=== PATIENT | male | born 1965 | race Caucasian/White ===

== ENCOUNTER 2016-07-03 08:21 | Inpatient (IN) | payer OTHER ==
[2016-07-03] VITALS (12 sets, daily range): BP systolic 124–143; BP diastolic 59–87; PULSE 75–102; RESP 10–17; O2SAT 90–97
[~2016-07-03] VITALS: Ht 182.9 cm; Wt 130.0 kg
[2016-07-03] MEDS: cefTRIAXone 2,000 mg/D5W 50 mL IV Minibag Plus IV SCH ×4 (06:00→11:56)
[2016-07-03] MEDS: Vancomycin Inj 2,000 MG in 0.9% Sodium Chloride 500 ML IV SCH ×2 (06:00→11:14)
[~2016-07-03 08:21] MED LIST: ALLO300T2 PO; AZU500 PO; BETA30LO2 TP; Bupivacaine Liposome 1.3% 20 mL Inj INFILTRATE SCH; CLOB15CR3 TOP; COLC0.6C3 PO; FOLI1TAB18 PO; INDO50CA PO; KEN25CR EXT; LISI-567 PO; Lactated Ringer's 1,000 ML IV ONE; OXYC5CAP4 PO; SECU150S2 SQ; [UNRECOGNIZED DRUG - CODE] SQ
[2016-07-03] MEDS ORDERED: Lactated Ringer's 1,000 ML IV ONE (10:30)
[2016-07-03] MEDS ORDERED: Bupivacaine Liposome 1.3% 20 mL Inj INFILTRATE ONE (10:49)
[2016-07-03] MEDS ORDERED: Gentamicin 40 mg/mL 2 mL Inj IRRIGATION ONE (10:49)
[2016-07-03] MEDS ORDERED: Bupivacaine-MPF 0.25%/EPI 30 mL Inj INFILTRATE ONE (10:49)
[2016-07-03] MEDS ORDERED: Lactated Ringer's 1,000 ML IV SCH (11:12)
[2016-07-03] MEDS ORDERED: Lactated Ringer's 500 ML IV PRN (11:12)
--- NOTE | 2016-07-03 11:12 | PCM.HPANE ---
Patient Data Surgeon Admitting Provider: Attending Provider:Pabilto Alex MD Primary Care Physician:Kim Howard Other Provider:Sav Mccrary Anesthesia Reason for Visit Right Knee Arthritis RIGHT KNEE ARTHRITIS Ht/WT & BMI Height (Feet): 6 Height (Inches): 0 Weight (Kilograms): 131.54 Body Mass Index 39.00 Allergies Coded Allergies: Penicillins (Verified Allergy, Severe, SOMMER PEG SYNDROME, 06/14/16) amoxicillin (Verified Allergy, Severe, SOMMER PEG SYNDROME, 06/14/16) cephalexin (Unverified Allergy, Unknown, UNKNOWN, 06/14/16) clavulanic acid (Verified Allergy, Unknown, UNKNOWN, 06/14/16) linezolid (Verified Allergy, Unknown, 06/28/16) metoclopramide (Verified Adverse Reaction, Severe, "OUT OF BODY" EXPERIENCE, 06/14/16) Past Anesthesia History Anesthesia History: Positive for:: Anesthesia Reactions (allergy to reglan), Denies:: Abnormal Airway, Difficult Intubation, Fam Anesthesia Reaction, Malignant Hyperthermia Diabetes History Hx Diabetes?: No MRSA MRSA: No (MSSA infection hx- sees infectious disease) Medications Hypertension Medication: Yes Home Meds Incl Beta Patria: No Reported Medications Indomethacin 50 Mg Octfkbp34 Mg PO 3-4xdaily Ref 0 06/28/16 Triamcinolone Acet (Triamcinolone Acetonide Cream)1 Applic/0.25 Gm Cr1 Applic EXT BID PRN skin irritation #60 GM Ref 0 06/28/16 Sulfasalazine 500 Mg Tablet1,000 Mg PO BID 30 Days Ref 0 06/28/16 Methotrexate/Pf (Rasuvo 10 mg/0.2 ml Autoinj)10 Mg/0.2 Ml Auto.injct10 Mg SQ WEEKLY 06/28/16 Lisinopril 20 Mg Gujndh54 Mg PO DAILY 30 Days Ref 0 06/28/16 Folic Acid 1 Mg Tablet1 Mg PO DAILY 30 Days 06/28/16 Secukinumab (Cosentyx (2 Syringes))150 Mg/Ml Eqwrxxj521 Mg SQ p4lznjg 06/28/16 Colchicine 0.6 Mg Capsule0.6 Mg PO DAILY PRN gout flares 06/28/16 Clobetasol Propionate/Emoll (Clobetasol Emollient 0.05% Crm)15 Gm Cream..g.1 Appl TOP BID PRN skin irritation #1 TUBE 06/28/16 Betamethasone/Propylene Glyc (Betamethasone Dp Aug 0.05% Lot)30 Ml Ewpras73 Ml TP PRN skin irritation 06/28/16 Allopurinol 300 Mg Tsemzz785 Mg PO DAILY Ref 0 06/28/16 oxyCODONE 5 Mg Capsule5 Mg PO 3-4xdaily PRN For Pain Ref 0 06/28/16 Discontinued Reported Medications Sulfasalazine 500 Mg Mzmzlf571 Mg PO QID 30 Days Ref 0 06/14/16 Methotrexate/Pf (Rasuvo 10 mg/0.2 ml Autoinj)10 Mg/0.2 Ml Auto.injct10 Mg SQ WEEKLY 06/14/16 Secukinumab (Cosentyx (2 Syringes))150 Mg/Ml Izhxxjk607 Mg SQ 06/14/16 Allopurinol 300 Mg Vpsaaw002 Mg PO DAILY Ref 0 01/06/15 oxyCODONE 5 Mg Capsule5-10 Mg PO Q4H PRN For Pain Ref 0 09/22/14 History History of ENT Problems?: No HEENT History: Positive for:: Sinus Problem (sinus drip at night occasionally) Denies:: Abnormal Airway Cataracts Difficult Intubation Glaucoma Hearing Problem TMJ Denture Type: Partial- Upper Teeth Condition: Missing Teeth Hx of Heart Problems?: Yes Cardiovascular History: Positive for:: Hypertension Denies:: Congestive Heart Failure Edema Heart Murmur Irregular Heartbeat Pacemaker Thrombophlebitis Hx of Respiratory Problem?: No Respiratory History: Positive for:: Dyspnea (with exertion) Denies:: Asthma COPD Emphysema Hemoptysis Oxygen Administration Pneumonia (URI 2 years ago - none since) Tuberculosis Use of C-PAP Machine Use of Inhalers / NEBS Hx Neurologic Problems?: No Neurological History: Denies:: CVA Dementia Dizziness Headaches Multiple Sclerosis Parkinson's Disease Seizures TIA Hx of GI Problems?: Yes Hx of Problems?: No Genitourinary History: Denies:: Kidney Stones Urinary Tract Infection Male Hx: Denies:: Prostate Problems Scrotal Mass Testicular Surgery Skin History: Positive for:: History Skin Disorders? (psoriasis) Denies:: Pressure Ulcers Hx Musculoskeletal Problems?: Yes Musculoskeletal History: Positive for:: Joint Replacement (L hip replacement) Musculoskeletal Trauma (post op wound infection right knee current problem) Osteoarthritis (psoriatic arthritis ) Denies:: Back Injury Hx of Psycho/Social Problems?: No Psycho Social History: Denies:: Anxiety (situational with knee/ infections) Hx Depression Hx Surgeries?: No (tonsillectomy, foot surgery, left hip replacement, rt knee arthrosopy) Hx Any Other Health Problems?: Yes Other History: Positive for:: Hospitalization (surgery) Denies:: Cancer Endocrine Disease Thyroid Disease History Blood Transfusions: Positive for:: Accept Blood Products? Denies:: Blood Transfuse Reaction Blood Transfusions Hx Diabetes: No Hx Alcohol Use: YesAlcoholic Drinks Per Day: 6 beer weeklyHx Substance Use: No Smoking Status: Never Smoker Have You Smoked inLast 12 mo: No Stop/Bang S-Snoring: Do You Snore Loudly: No T-Tired: feel tired, fatigued: No O-Obsered: Observed not breath: No P-Blood Pressure: treated: Yes B- Body Mass Index > 35 kg/m2: Yes A- Age over 50: Yes N- Neck Large Circumference: No G- Gender Male: Yes KEVIN Total Score: 4 Risk Assessment Category Category 1A: Patient has history of documented sleep apnea, and HAS NOT received any narcotic, sedative or anesthesia administration during this stay. Category 1B: Patient has history of documented sleep apnea, and HAS received any narcotic , sedative or anesthesia administration during this stay Category 2: Patient has SUSPECTED Obstructive Sleep Apnea, and HAS received any narcotic , sedative or anesthesia administration during this stay. Category 3: Patient has SUSPECTED Obstructive Sleep Apnea and HAS NOT received narcotic, sedative or anesthesia administration during this stay. Category 4: Outpatient in Procedural Areas with known sleep apnea or who screen positive for High Risk via the STOP/BANG questionnaire. Exam Exam General Appearance: Alert, Oriented X3, Cooperative, No Acute Distress HEENT/AIRWAY: MP 2, Neck Movement (FROM), Mouth Opening (3 FBMO) Lungs: Clear to Auscultation, Normal Air Movement Heart: Exam Unremarkable, Regular Rate/Rhythm, No Murmurs/Rubs/Gallops Plan Impression Patient chart reviewed, patient interviewed and anesthestic plan with risks, benefits, and alternatives discussed, and informed consent obtained. NPO per Anesth. Guidelines: Yes ASA Physical Status: ASA2 Mod Systemic Disease Anesthetic Plan: GA, Regional Block (Right femoral nerve block for posotperative pain control), SAB (Will attempt SAB first, if unsuccessful will perform GETA) Bene/Risks/Altern/Consents: Yes HP Complete Prior to Induction: Yes Akhil Gutierrez MD July 03, 2016 08:31
[2016-07-03] MEDS ORDERED: Phenylephrine 10,000 mCg/mL Inj IVPUSH PRN (11:15)
[2016-07-03] MEDS ORDERED: Labetalol 5 mg/mL 4 mL Inj IV PRN (11:15)
[2016-07-03] MEDS ORDERED: HYDROmorphone 1 mg/mL Inj IVPUSH PRN (11:15)
[2016-07-03] MEDS ORDERED: Ondansetron 2 mg/mL 2 mL Inj IVPUSH PRN (11:15)
[2016-07-03] MEDS ORDERED: fentaNYL-PF 50 mCg/mL 2 mL Inj IVPUSH PRN (11:15)
[2016-07-03] MEDS ORDERED: Atropine 0.4 mg/mL Inj IVPUSH PRN (11:15)
[2016-07-03] MEDS ORDERED: EPHEDrine Sulfate 50 mg/mL Inj IVPUSH PRN (11:15)
[2016-07-03] MEDS ORDERED: fentaNYL-PF 50 mCg/mL 2 mL Inj ONE (13:33)
[2016-07-03] MEDS ORDERED: Propofol 10,000 mCg/mL 20 mL Inj ONE (13:33)
[2016-07-03] MEDS ORDERED: HYDROmorphone 2 mg/mL Inj ONE (13:33)
[2016-07-03] MEDS ORDERED: Phenylephrine/NS 100 mCg/mL 10 mL Syringe IVPUSH ONE (13:33)
[2016-07-03] MEDS ORDERED: Rocuronium 10 mg/mL 5 mL Inj ONE (13:33)
[2016-07-03] MEDS ORDERED: Dexamethasone 4 mg/mL Inj ONE (13:33)
[2016-07-03] MEDS ORDERED: Ondansetron 2 mg/mL 2 mL Inj ONE (13:33)
--- NOTE | 2016-07-03 13:39 | DRSVH ---
PROCEDURE: X-RAY RIGHT KNEE, ONE OR TWO VIEWS ([id number]) INDICATIONS: CHECK ALIGNMENT TECHNIQUE: 2 view(s) of the knee acquired. COMPARISON: None. FINDINGS: Bones: Patient is status post knee joint arthroplasty. Hardware components are in expected position s. Visualized bony structures are intact. Soft tissues: Overlying postoperative changes are noted. IMPRESSION: Post-operative knee arthroplasty. Dictated by: Alana Edge M.D. on 07/03/2016 at 13:36 Approved by: Alana Edge M.D. on 07/03/2016 at 13:37
[2016-07-03] MEDS ORDERED: Magnesium Hydroxide 10 mL Oral Concentration PO PRN (14:20)
[2016-07-03] MEDS ORDERED: Alum-Mag Hydrox-Simeth 30 mL Suspension PO PRN (14:20)
[2016-07-03] MEDS ORDERED: Sodium Biphos-Phos 133 mL Enema RECTAL PRN (14:20)
[2016-07-03] MEDS ORDERED: MetoCLOpramide 5 mg/mL 2 mL Inj IV PRN (14:20)
[2016-07-03] MEDS ORDERED: diphenhydrAMINE 25 mg Capsule PO PRN (14:20)
[2016-07-03] MEDS ORDERED: Ondansetron 2 mg/mL 2 mL Inj IV PRN (14:20)
[2016-07-03] MEDS ORDERED: HYDROcodone-APAP 5-325 mg Tablet PO PRN (14:20)
[2016-07-03] MEDS ORDERED: Ondansetron 8 mg ODT Tablet PO PRN (14:20)
[2016-07-03] MEDS ORDERED: hydrOXYzine Pamoate 25 mg Capsule PO PRN (14:20)
--- NOTE | 2016-07-03 14:27 | PCM.ANEP1 ---
Post Anesthesia Phase 1 PACU Phase 1 Assessment Vital Signs Vital Signs Date Time Temp Pulse Resp B/P Pulse Ox O2 Delivery O2 Flow Rate FiO2 07/03/16 13:50 37.0 90 17 131/78 Nasal Cannula 3.00 07/03/16 13:35 91 13 131/59 94 Nasal Cannula 3 07/03/16 13:25 91 15 124/75 92 Room Air 07/03/16 13:15 37.8 92 11 143/87 93 Nasal Cannula 3 07/03/16 13:10 94 12 131/75 96 Nasal Cannula 3 07/03/16 13:05 90 10 132/68 90 Nasal Cannula 2 07/03/16 13:00 97 16 139/65 93 Nasal Cannula 2 07/03/16 12:55 98 14 131/77 95 Nasal Cannula 2 07/03/16 12:50 37.3 93 15 138/82 97 Simple Mask 8 07/03/16 09:09 36.5 75 17 130/67 97 Anesthetic Administered: GA Level of Alertness: Awake, talking RITTER's with Equal Strength: Yes (except for distribution of FNB) Pain: Yes (RN notified) Pain Scale Score: 4 Nausea or Vomiting: No Cardiovascular Function and Hy: Yes Oxygen Delivery: Nasal Cannula Lungs: Clear to Auscultation, Normal Air Movement Dermatome Level: Full Sensation (except for distribution of femoral nerve block ) Complications: No Follow up Care: No Akhil Gutierrez MD July 03, 2016 14:27
[2016-07-03] MEDS ORDERED: CLOBETASOL 0.05% TOPICAL PRN (14:40)
[2016-07-03] MEDS ORDERED: BETAMETHASONE DIPROPIONATE 0.05% TOPICAL PRN (14:40)
[2016-07-03] MEDS: Lactated Ringer's 1,000 ML IV SCH (14:46)
[2016-07-03] MEDS: oxyCODONE-Acetamin 5-325 mg Tablet PO PRN ×2 (15:04→22:40)
--- NOTE | 2016-07-03 16:05 | NUR ---
Evaluation completed. Please go to "Notes" then click on "Assessments and Notes" (bottom left corner of screen). Then select appropriate discipline tab on top of screen.
[2016-07-03] MEDS ORDERED: Indomethacin 25 mg Capsule PO SCH (17:30)
--- NOTE | 2016-07-03 18:52 | NUR ---
Hemovac Unclamped, Urination, CPAP Patient arrived to floor from PACU, CMS intact, has sensation and movement to surgical extremity, pedal pulses present, brisk capillary refill. Hemovac unclamped per orders. Patient able to urinate without difficulty. Patient reports pain well controlled with oral pain meds, denies nausea or other difficulty. Patient refuses CPAP despite education, on pulse oximeter, sats in mid to upper 90s on room air. Care is ongoing.
[2016-07-03] MEDS: Sulfasalzine 500 mg Tablet PO SCH (20:47)
--- NOTE | 2016-07-03 22:37 | OP ---
[address] [address] OPERATIVE REPORT PATIENT: PERICO HAMILTON : 1965 MR#: [id number] ADMIT: 07/03/2016 JOB ID: [id number] DATE OF SURGERY: 07/03/2016 SURGEON: Pablito Alex MD PREOPERATIVE DIAGNOSIS(ES): Severe arthritis, right knee. History of prior septic arthritis. POSTOPERATIVE DIAGNOSIS(ES): Severe arthritis, right knee. History of prior septic arthritis. PROCEDURE: Total knee replacement with culture, bacterial PCR, and intraoperative frozen section. FAILURE ANALYSIS ENGINEER: Jessica Melchor PA-C. Fire Alarm Mechanic required due to the major complexity of the operation. COMPLICATIONS: None. INDICATIONS: This gentleman has had severe osteoarthritis. He went through extensive treatment for an intra-articular infection three years ago following an arthroscopic procedure. All evidence is that he is infection-free at this point in time. Infectious disease consultation has been obtained and will facilitate postoperative management. Due to the significant risk of increased infection, a minimal bone resection prosthetic choice was made for the tibial component. Intraoperative cultures, PCR and frozen section were obtained and he will be placed on postoperative antibiotics as if this was a primary exchange. PROCEDURE IN DETAIL: The patient was prepped and draped in the usual sterile fashion. An anteromedial approach was made to the knee. Minimal intra-articular fluid was noted, but a small effusion was present and this used material was sent for bacterial PCR. Following this, the patella was subluxed laterally, cut transversely, sized to a 38 and a patellar protection plate was utilized. Tissue specimens were obtained for culture at this point. A drill hole was placed in the distal femur and a distal femoral cut was made, cutting into one of the bony cysts present. Cystic material was sent for frozen section as well as additional sampling for frozen section. Frozen section returned a diagnosis of no bacteria, no evidence of infection. Therefore, decision was made to proceed with implantation. The femur was sized using the rotational sizing device to a #7 chamfer block which was fixed in appropriate position of rotation and drill holes and chamfer cuts were made. The tibia was cut with the extramedullary tool and a four pegged tibia was chosen from the [employer] set for minimal bone resection to facilitate the procedure should a revision be required in the future. This was sized to a 7 component and fixed in appropriate position of rotation and trial reduction was performed and a 12 mm polyethylene was chosen. Excellent tracking and soft tissue alignment was achieved with this polyethylene. A +2 distal femoral cut had been made to facilitate full extension, with the patient having had a prior flexion contracture. Excellent on the table range of motion was obtained with this construct. Appropriate position of rotation in the tibial provisional was achieved and drill holes were made. Copious lavage with pressurized sterile irrigant was utilized. The knee was then lavaged and soaked in dilute Betadine solution for a 3 minute period following which the Betadine was lavaged from the knee. Pressurized lavage was followed by pressurized cementation. Excess cement was removed during the curing process and the final construct was assembled. It was subsequently placed over a deep Hemovac drain. The deep tissues were closed with #2 Quill deep followed by a 2-0 Vicryl, 3-0, and a 4-0 intracuticular suture. The patient tolerated the procedure well. There were no complications.
[2016-07-03] MEDS ORDERED: Vancomycin Inj 2,000 MG in 0.9% Sodium Chloride 500 ML IV ONE (23:00)
[2016-07-04 04:45] VITALS: BP 124/72; PULSE 80; RESP 16; O2SAT 92
--- NOTE | 2016-07-04 05:17 | NUR ---
Pain Patient's pain has been well managed this shift. 1 Percocet in addition to scheduled Toradol. Patient voiding in urinal. Hemovac put out 360 in the first [address] Malik contacted [facility] Marino. Ordered to clamp hemavac for 2hrs and then unclamp. Patients vitals stable. Hemovac output slowed after unclamped. Patient A&Ox3.
[2016-07-04 05:39] LABS: BASOPHILS % (AUTO) 0.1 % (0-3); EOSINOPHILS % (AUTO) 0 % (0-5); MONOCYTES % (AUTO) 8.9 % (4-12); Mean Corpuscular Hemoglobin 31.3 pg (27.0-35.0); Mean Corpuscular Volume 95.3 fL (81-100); NEUTROPHILS % (AUTO) 80.9 % (40-74); Platelet Count 124 bil/L (150-400)
[2016-07-04] MEDS ORDERED: 0.9% Sodium Chloride 250 ML ONE (08:12)
[2016-07-04 08:15] VITALS: BP 138/85; PULSE 86; RESP 15; O2SAT 97
[2016-07-04] MEDS: oxyCODONE-Acetamin 5-325 mg Tablet PO PRN ×2 (08:18→22:32)
[2016-07-04] MEDS: Sulfasalzine 500 mg Tablet PO SCH ×2 (08:20→21:04)
[2016-07-04] MEDS: Indomethacin 25 mg Capsule PO SCH ×3 (08:22→17:55)
[2016-07-04] MEDS: cefTRIAXone 2,000 mg/D5W 50 mL IV Minibag Plus IV SCH ×2 (08:29)
--- NOTE | 2016-07-04 09:48 | PCM.PNORTH ---
Subjective Date of Service: July 04, 2016 Visit Information: Reason for Visit Right Knee Arthritis Surgery/Surgery Date R TKA 07/03/16 Post-Op Day # 1 Date of Admission: July 03, 2016 at 13:32 Hospital Day # Subjective Patient states his pain is well controlled. He states he has had some pain along the outside of his knee. He also states he is regaining feeling in the back of his knee. He has no complaints at this time. Postop General: No Complaints, No Shortness of Breath, No Chest Pain Pain Management: PO Objective Exam Objective Sitting up in bed working with PT Vital Signs and I/O Vital Sign - Last Date Time Temp Pulse Resp B/P Pulse Ox O2 Delivery O2 Flow Rate FiO2 07/04/16 08:15 36.7 86 15 138/85 97 Room Air 07/03/16 19:15 3.00 Intake and Output 07/03/16 07/03/16 07/04/16 Cumulative From/Thru 15:00 23:00 07:00 06/28/16 14:32 - 07/04/16 06:30 Intake Total 1760 ml 200 ml 2517 ml 4477 ml Output Total 50 ml 600 ml 780 ml 1430 ml Balance 1710 ml -400 ml 1737 ml 3047 ml Intake Oral 200 ml 1200 ml 1400 ml IV Total 1760 ml 1317 ml 3077 ml Output Urine Total 450 ml 500 ml 950 ml Drainage Total 150 ml 280 ml 430 ml Estimated Blood Loss 50 ml 50 ml Lab & Micro Results Laboratory Tests Test 07/04/16 05:12 White Blood Count 10.5th/mm3 (3.8-10.1) Red Blood Count 3.42mil/mm3 (4.40-5.80) Hemoglobin 10.7g/dL (13.8-17.2) Hematocrit 32.6% (41.0-50.0) Mean Corpuscular Volume 95.3fL (81-100) Mean Corpuscular Hemoglobin 31.3pg (27.0-35.0) Mean Corpuscular Hemoglobin Concent 32.8% (32.0-37.0) Red Cell Distribution Width 13.4% (12.3-15.4) Platelet Count 124bil/L (150-400) Neutrophils (%) (Auto) 80.9% (40-74) Lymphocytes (%) (Auto) 9.7% (14-46) Monocytes (%) (Auto) 8.9% (4-12) Eosinophils (%) (Auto) 0% (0-5) Basophils (%) (Auto) 0.1% (0-3) Microbiology 07/03/16 Bacteria Detection (PCR), Received Pending Result Diagram: 07/04/16 0512 General Appearance: Alert, Oriented X3, Cooperative, No Acute Distress Extremities: Distal Pulses Palpable, No Compartment Syndrom Noted, Thigh & Calf Soft/Nontender Postop Sensory Motor: Distal Motor Intact, Movement in Toes, Distal Sensation Intact, NVI Distally SURGICAL WOUND : Wound Location/Description Perioperative dressing c/d/i Drain Location Body Site: Knee Incision General Appearance: No Direct Observation Dressing & Drainage Status: Intact Wound Drainage Type: Hemovac Activity: Ambulate with PT (WBAT c FWW) Assessment & Plan Impression POD#1 right TKA Problems: Plan Weightbearing: Weightbearing as tolerated with a front wheeled walker DVT prophylaxis: Aspirin 81mg BID x6 weeks Physical therapy for transfers, progressive ambulation, strengthening Wound care: Perioperative dressing will be changed to an island dressing tomorrow. Analgesia: Continue oral pain medications. I have also started patient on IV acetaminophen q6 x4 doses for a total of 24 hours of coverage as he has a history of chronic narcotic use. Discharge plan: Discharge home in 1-2 days. Start outpatient physical therapy next week. Follow-up plan: In 2 weeks at [facility]3] with AMBER for wound check and at [address] Alex with x-rays Jessica Melchor PA-C July 04, 2016 09:48
[2016-07-04] MEDS: Acetaminophen IV 1,000 mg IV SCH ×2 (12:05→17:55)
[2016-07-04] MEDS: Lactated Ringer's 1,000 ML IV SCH (12:36)
--- NOTE | 2016-07-04 15:17 | NUR ---
Social Work: Screening D: EMR reviewed. Pt is a 51 y/o male admitted for right knee arthritis per H&P. SW met with pt at bedside to conduct screening. Pt was alert and oriented x3. Pt's insurance is [employer] and PCP is Kim Howard MD. Pt has no LTC or VA insurance. Pt has no history of HH or a SNF. Pt confirmed he has completed DPOA/advanced directive and will attempt to bring a copy to the hospital. Pt live at home with in [place]. Pt's primary contact is [place] [phone]. Pt lives in a split level home with 0 external steps and 15 internal steps. Pt ambulates independently at baseline and is independent of ADLs. Pt drives. Pt has crutches and a cane for rehabilitation. Pt has FWW prescribed and will use for rehab after discharge. 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 PT currently recommends outpatient PT and a FWW. Pt is currently scheduled for outpatient PT. Pt is concerned about being homebound for the first week after discharge and is considering HH. Pt will talk to PT about HH and SW will follow-up with pt to R/O HH. SW will continue to follow. A: Pt who ambulates independently at baseline. Pt who would benefit from outpatient PT for rehab. P: Pt to transport home via POV with and go to outpatient PT as scheduled. Pt would like to discuss possible HH with PT. SW to follow-up tomorrow after PT has seen pt to R/O HH. PAULA Grover.
--- NOTE | 2016-07-04 15:56 | NUR ---
Social Work: Initial Assessment D: EMR reviewed. Pt is a 68 y/o male admitted for left septic elbow, UTI per H&P. SW met with pt at bedside to conduct initial assessment. Pt was alert and oriented x3. Pt's insurance is [employer]. Pt's PCP is Jc Mccann MD. Pt has no LTC or VA insurance. Pt has no history of SNF or HH. Pt ambulates independently at baseline but has a cane for prior rehab use. Pt is independent with ADLs. Pt drives. Pt lives in a single-level home (2 external steps, 0 internal) in [place] with . Pt has completed DPOA/advanced directive ppw - SW encourage pt to bring copy to hospital. Pt's Kay will provide transport via POV at time of discharge. A: Pt who is independent at baseline P: Pt's will provide transportation home via POV. No anticipated discharge needs at this time. SW will continue to follow. PAULA Grover Addendum: 07/04/16 at 1603 by RICARDO DIAL Amended: Links added. Addendum: 07/05/16 at 0850 by RICARDO DIAL DISREGARD INITIAL ASSESSMENT ABOVE. SW ENTERED ASSESSMENT FOR WRONG PT. ASSESSMENT NOT CORRECT AND DOES NOT REFLECT ASSESSMENT OF PT. PAULA Grover
[2016-07-04] MEDS ORDERED: Sodium Chloride LOK Flush 10 mL Syringe IVFLUSH PRN ×2 (16:55)
[2016-07-04 17:08] VITALS: BP 138/81; PULSE 74; RESP 16; O2SAT 92
--- NOTE | 2016-07-04 18:22 | NUR ---
Hemovac Removal Hemovac DC'd this shift after collection chamber because dislodged from tubing. Patient tolerated removal well. Pressure applied to removal site, dressing applied. Care is ongoing.
--- NOTE | 2016-07-04 18:53 | CONS ---
[address] [address] CONSULTATION REPORT PATIENT: PERICO HAMILTON : 1965 MR#: [id number] ADMIT: 07/03/2016 JOB ID: [id number] DATE OF SERVICE: 07/04/[address] Alex for this timely consult. REASON FOR CONSULTATION: Right-sided total knee implant performed yesterday in a patient with history of prolonged and difficult septic right knee. HISTORY OF PRESENT ILLNESS: The patient is a 51-year-old gentleman with underlying gout, psoriatic arthritis and right septic knee is well-known to me from a series of hospitalizations and outpatient encounters that started in late 2014 and extended all the way to the present. Basically back in the summer 2014, the patient had an arthroscopic surgery done on his right knee because of some synovial cyst and other issues. Following this, he developed a raging MSSA septic right knee which was also a gouty knee and surgical intervention showed that it was both gout and MSSA. Initial treatment was with daptomycin which was terminated after three weeks because of hyperkalemia and switched to a combination of Minocin and rifampin orally. This eventually failed by clinical criteria though was not completely clear if it was a microbiologic failure. The patient went back to the OR in the fall for his 3rd procedure which once again re-evaluated his joint. At that point, a great deal of fibrosis was encountered and basically synovectomy was performed. The cultures from that did not yielded any MSSA but there was one colony isolated of a P. acnes. The patient was then treated with a very prolonged course of IV vancomycin with near normalization of his CRP and eventually transitioned to oral antibiotics which initially included linezolid and rifampin and, later, minocycline alone. By the summer, he had stopped all antibiotics. The patient has continued to have a great deal of difficulty with respect to his severely damaged right knee, and the plan was to wait a number of months to make sure his CRPs were relatively stable at low levels and watch for recrudescent infection before knee replacement. Numerous aspirates of his knee have been conducted over the last year including some done for PCR and has had positive culture PCR results so was deemed safe to go ahead with a total knee replacement on yesterday, July 03. This was done without complication and I have discussed the surgery in detail with Dr. Alex who did not feel there was any ongoing infection. Nonetheless, many cultures were sent and PCR studies done. A frozen section done during surgery did not show evidence of infection. Since surgery, the patient reports he has been feeling okay. He had some sweats last night but no fevers or chills. He has had no pulmonary or GI symptoms. He notes his nerve block is still in place. He still has not experienced too much in the way of pain secondary to his right knee replacement and he has already been up walking on it from today. PAST MEDICAL HISTORY: 1. Septic right knee summer 2014 with MSSA and prolonged course resulting in severe damage to the right knee. 2. Severe psoriasis with psoriatic arthritis. 3. Gout. 4. 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 5. History of blistering rash due to cephalexin. 6. Avascular necrosis, left hip. 7. Status post left hip replacement about 2011. SOCIAL HISTORY: The patient lives with his family locally. He does not smoke and uses no illicit drugs. He does drink alcohol socially. FAMILY HISTORY: Negative for any history of tuberculosis in first or second-degree relatives. REVIEW OF SYSTEMS: The patient has had some night sweats but no fevers or chills and those night sweats only occurred after surgery. He has had a minimal headache today which is also a postop discovery. No change in vision. He has a little bit of sore throat since surgery he attributes to his intubation, but he did have a little bit of sore throat before and states it was a virus apparently moving through his family. No stiff neck or swollen lymph nodes. No significant cough, shortness of breath, chest pain, nausea, vomiting, diarrhea, or dysuria. No pain in any joints at this point except his back which is chronic and mild and his right knee which was just replaced.Remainder of ROS is negative PHYSICAL EXAMINATION: Reveals an afebrile gentleman. He has been afebrile since admission. Temp 36.7, pulse 86, respiratory rate 15, blood pressure 138/85, saturating 97% on room air. He is awake, alert. Head without any evident trauma. Eyes without conjunctivitis. Oral cavity without thrush or pharyngitis. No hairy leukoplakia seen on the tongue. Teeth are in good repair. Neck is supple without adenopathy. Lungs are clear. Cardiac tones: Regular rate and rhythm without murmurs, rubs, or gallops. The abdomen is soft and nontender. No organomegaly. He does not have a Joy. No suprapubic tenderness. No inguinal adenopathy noted. Left lower extremity is benign. Right lower extremity starting at the knee and below was wrapped in a large postop compressive dressing which I did not remove. The patient can move his both his feet without difficulty though and seems to have good sensation of his foot even as part of his leg is still numb from his block. Motor strength on the upper extremities is excellent and, as mentioned, the neuro exam is normal. LABORATORIES: Include white count 10,500, today on his 1st postop day, 81% segs, creatinine 0.95. LFTs are normal. C-reactive protein has not been checked during this admission but will start checking him on an outpatient basis. Micro studies include the pending PCR studies from surgery, fungal cultures are also pending. The routine cultures are negative at 24 hours and Gram stain and frozen sections are also negative. X-ray of the knee shows hardware in expected position. IMPRESSION: This patient seems to have tolerated this knee replacement quite well. I am happy that Dr. Alex did not find any evidence of infection and the frozen sections were benign. At this point, we await the final culture and PCR results. Because of the tremendous infectious problems that have been present in the right knee, we plan to treat this as a one stage replacement into an infected or potentially infected knee and give six weeks of IV antibiotics followed by about six months of oral antibiotics directed at either any new pathogens we find this time more or the pathogen we had last time which was MSSA. RECOMMENDATIONS: 1. I have ordered a PICC line. 2. I have placed the orders for [facility] to evaluate the patient and treat him with ceftriaxone through August 12 at a dose of 2 g once a day. 3. The patient should be sent home on rifampin 450 mg p.o. b.i.d. through August 12. 4. I will be seeing this patient in my clinic on July 12. 5. Assuming there are no problems, I will probably not see the patient here tomorrow as he will be leaving sometime tomorrow morning, but I can be reached at any time regarding any issues with the disposition of this patient whom I know very well. MTDD
[2016-07-04 20:00] VITALS: BP 149/82; PULSE 76; RESP 17; O2SAT 97
[2016-07-05] MEDS: Acetaminophen IV 1,000 mg IV SCH ×2 (00:01→04:00)
--- NOTE | 2016-07-05 03:50 | NUR ---
Ambulation Patient up ambulating independent to bathroom w/FWW, stable on feet. Patient has had two BM's this shift. the second BM was very loose. Stool softeners no longer necessary. Patient's pain has been managed by one Percocet and IV Tylenol. Patient A&Ox3. Vitals stable.
[2016-07-05] MEDS: Lactated Ringer's 1,000 ML IV SCH (05:51)
[2016-07-05 06:02] VITALS: BP 111/67; PULSE 70; RESP 17; O2SAT 96
[2016-07-05] MEDS ORDERED: 0.9% Sodium Chloride 250 ML ONE (08:24)
[2016-07-05] MEDS: Indomethacin 25 mg Capsule PO SCH ×2 (08:29→12:10)
[2016-07-05] MEDS ORDERED: methoTREXate-PF 25 mg/mL 2 mL Inj SUBQ SCH (08:30)
[2016-07-05] MEDS: cefTRIAXone 2,000 mg/D5W 50 mL IV Minibag Plus IV SCH ×2 (08:30)
[2016-07-05] MEDS: Sulfasalzine 500 mg Tablet PO SCH (08:32)
--- NOTE | 2016-07-05 09:13 | PCM.PNORTH ---
Subjective Date of Service: July 05, 2016 Visit Information: Reason for Visit Right Knee Arthritis Surgery/Surgery Date R TKA 07/03/16 Post-Op Day # 2 Date of Admission: July 03, 2016 at 13:32 Hospital Day # Subjective Patient plans of incisional pain. He denies any fever, chills, nausea, or chest pain. Postop General: No Complaints, No Shortness of Breath, No Chest Pain Pain Management: PO Objective Exam Objective Patient is seen sitting up in bed Vital Signs and I/O Vital Sign - Last Date Time Temp Pulse Resp B/P Pulse Ox O2 Delivery O2 Flow Rate FiO2 07/05/16 06:02 36.9 70 17 111/67 96 Room Air 07/03/16 19:15 3.00 Intake and Output 07/04/16 07/04/16 07/05/16 Cumulative From/Thru 15:00 23:00 07:00 06/28/16 14:32 - 07/05/16 06:40 Intake Total 1350 ml 2818 ml 8645 ml Output Total 1475 ml 1000 ml 3905 ml Balance -125 ml 1818 ml 4740 ml Intake Oral 1350 ml 1200 ml 3950 ml IV Total 1618 ml 4695 ml Output Urine Total 1475 ml 1000 ml 3425 ml Drainage Total 430 ml Estimated Blood Loss 50 ml # Bowel Movements 0 0 0 Lab & Micro Results Microbiology 07/03/16 Bacteria Detection (PCR), Received Pending Result Diagram: 07/04/16 0512 General Appearance: Alert, Oriented X3, Cooperative, No Acute Distress Extremities: Distal Pulses Palpable, No Compartment Syndrom Noted, Thigh & Calf Soft/Nontender Postop Sensory Motor: Distal Motor Intact, NVI Distally SURGICAL WOUND : Wound Location/Description Surgical dressing is removed from the right knee. Steri-Strips are intact. No acute drainage or erythema present. There is very minimal serous drainage on the Silverlon dressing. The wound and drain portal site were cleansed with hydrogen peroxide. Surgical wound was dressed with Silverlon and Island dressing. A 2 x 2 gauze and Tegaderm were placed over the drain portal. Dressing & Drainage Status: Changed Activity: Ambulate with PT (WBAT c FWW) Catheters: None Assessment & Plan Impression POD #1 status post right total knee arthroplasty Problems: Plan Weightbearing: Weightbearing as tolerated with walker DVT prophylaxis: aspirin 81 mg twice a day 6 weeks Physical therapy for transfers, progressive ambulation, therapeutic exercise Wound care: Dressing changed today to Island dressing. No signs of infection present. Thigh high HARSHAD hose applied. Discharge plan: Discharge home today if he can manage stairs. He has to do 15 stairs for home. Start outpatient physical therapy next week Antibiotics per Dr. Jefferson - Rifampin 450 mg PO BID and ceftriaxone 2g IV QD Follow-up plan: In 2 weeks at [facility] with PA for wound check and at [address] Alex with x-rays Follow up with Dr. Jefferson on 07/12/2016 Pain Management: Percocet, oxycodone, Indocin, Vistaril VTE Prophylaxis: SCDs, Other (aspirin) Resuscitation Status: CPR: Attempt Resuscitation WynotNicki Garzon PA-C July 05, 2016 09:13
--- NOTE | 2016-07-05 10:21 | PCM.DIORTH ---
Ortho Discharge Instruction Date of Service: July 05, 2016 Dates of Hospitalization Date of Hospital Admission July 03, 2016 at 13:32 Providers Admitting Physician: Pablito Alex MD Primary Care Physician: Kmi Howard Attending Physician: Pablito Alex MD Diet Discharge Diet: No restrictions Activity Discharge Activity-General: Balance rest and activity Right Lower Extremity: Weight Bearing as tolerated Discharge Assist Device: Front Wheeled Walker Dressing and Incisional Care Discharge Dressing Care: Keep dressing clean, dry & intact Discharge Hygiene: May shower ( with wound covered with plastic ) Additional Instructions Discharge Instructions Weightbearing: Weightbearing as tolerated with walker DVT prophylaxis: aspirin 81 mg twice a day 6 weeks Wound care: change current dressing in 3-4 days with Silverlon pad and Island dressing Wear Thigh high HARSHAD hose for 1 month Ice the knee 6-8 times a day for 20-30 minutes at a time Every hour of the day that you are awake, get up and walk or do some of the exercises. Gradually increase each day Push yourself with bending and straightening the knee. It will hurt but you need to push yourself. Every afternoon lay down with the leg up on pillows above the level of the heart to help decrease swelling. Antibiotics per Dr. Jefferson - Rifampin 450 mg PO twice a day and ceftriaxone 2g IV daily Follow Up Plan Follow Up Plan Follow-up plan: In 2 weeks at [facility] with AMBER for wound check and at [address] Alex with x-rays Follow up with Dr. Jefferson on 07/12/2016 Call your provider for: Fever, Chills, Shortness of breath, Vomitting, Drainage at incision, Wound redness Nicki Covarrubias PA-C July 05, 2016 10:21
[2016-07-05] MEDS ORDERED: DOCU-41 PO (13:26)
[2016-07-05] MEDS ORDERED: HYDR-3797 PO (13:26)
[2016-07-05] MEDS ORDERED: OXYC1TAB24 PO (13:26)
[2016-07-05] MEDS ORDERED: ASPI325T32 PO (13:26)
--- NOTE | 2016-07-05 13:28 | PCM.DC.ORT ---
Discharge Summary Date of Service: July 05, 2016 Date of Hospital Admission: July 03, 2016 at 13:32 Date of Surgery: July 03, 2016 Date of Discharge: July 05, 2016 Reason for Hospitalization: Right knee arthritis History of right septic knee Procedures Performed: Right total knee arthroplasty Hospital Course: The patient was admitted to the hospital on 07/03/2016 and underwent the above procedure. Antibiotic prophylaxis consisting of Ancef and vancomycin. The surgeon was Dr. Alex. A Joy was placed perioperatively. Patient tolerated the procedure well and was transferred to recovery room in stable condition. Patient had physical therapy to work on ambulation and transfers. Weightbearing as tolerated with walker. Pain was managed with Dilaudid, Percocet, Vistaril, Toradol. DVT prophylaxis: Aspirin, HARSHAD hose and SCDs. Due to the patient's history of septic right knee, Dr. Jefferson was consulted. Patient will be on prophylaxic antibiotics for 6 weeks including rifampin 450 mg twice a day and ceftriaxone 2 g IV daily through home infusion services. Patient progressed well with physical therapy and on POD-2 was discharged home. Follow-up: at [facility] 2 weeks postop for wound check and at [address] Alex with x-ray Diagnosis at Time of Discharge status post right total knee arthroplasty Problems: Disposition: Discharged home in stable condition with his to assist in his care Discharge Instructions: Weightbearing: Weightbearing as tolerated with walker DVT prophylaxis: aspirin 325 mg once a day 6 weeks Wound care: change dressing in 3 days Wear Thigh high HARSHAD hose x 1 month Ice the knee 6-8 times a day for 20-30 minutes at a time Every hour of the day that you are awake, get up and walk or do some of the exercises. Gradually increase each day Push yourself with bending and straightening the knee. It will hurt but you need to push yourself. Every afternoon lay down with the leg up on pillows above the level of the heart to help decrease swelling. Antibiotics per Dr. Jefferson - Rifampin 450 mg PO BID and ceftriaxone 2g IV QD Follow-up plan: In 2 weeks at [facility] with PA for wound check and at [address] Alex with x-rays Follow up with Dr. eJfferson on 07/12/2016 Allopurinol (Allopurinol) 300 Mg Tablet 900 MG PO DAILY Aspirin (Aspirin) 325 Mg Tablet 325 MG PO DAILY 40 days Betamethasone/Propylene Glyc (Betamethasone Dp Aug 0.05% Lot) 30 Ml Lotion 30 ML TP PRN skin irritation Clobetasol Propionate/Emoll (Clobetasol Emollient 0.05% Crm) 15 Gm Cream..g. 1 APPL TOP BID PRN PRN skin irritation Colchicine (Colchicine) 0.6 Mg Capsule 0.6 MG PO DAILY PRN PRN gout flares Docusate Sodium (Colace) 100 Mg Capsule 100 MG PO BID Folic Acid (Folic Acid) 1 Mg Tablet 1 MG PO DAILY Hydroxyzine Pamoate (HydrOXYzine Pamoate) 25 Mg Capsule 25 MG PO Q4H PRN PRN For Restlessness Indomethacin (Indomethacin) 50 Mg Capsule 50 MG PO 3-4xdaily Lisinopril (Lisinopril) 20 Mg Tablet 20 MG PO DAILY Methotrexate/Pf (Rasuvo 10 mg/0.2 ml Autoinj) 10 Mg/0.2 Ml Auto.injct 10 MG SQ WEEKLY Secukinumab (Cosentyx (2 Syringes)) 150 Mg/Ml Syringe 300 MG SQ [id number] Sulfasalazine (Sulfasalazine) 500 Mg Tablet 1,000 MG PO BID Triamcinolone Acet (Triamcinolone Acetonide Cream) 1 Applic/0.25 Gm Cr 1 APPLIC EXT BID PRN PRN skin irritation oxyCODONE (oxyCODONE) 5 Mg Capsule 5 MG PO 3-4xdaily PRN PRN For Pain oxyCODONE-Acetaminophen 5-325 mg (oxyCODONE-Acetaminophen 5-325 mg) 1 Each Tablet 1-2 TAB PO Q4H PRN PRN For Severe Pain Nicki Covarrubias PA-C July 05, 2016 13:28
--- NOTE | 2016-07-05 13:41 | NUR ---
Social Work-readiness for discharge: Data:EMR reviewed. Pt is on day 2 of hospitalization for right knee per H&P. Pt is likely medically stable later today or tomorrow. PT has seen pt and recommended home with outpt PT. TONI ONTIVEROS has seen pt and recommended pt will need IV abx until August. SW followed up with pt at bedside, SW role explained. SW discussed IV abx, choice list provided. Pt confirms that he has had these before and would like to use [facility]. Pt also has questions about HH. SW spoke with therapy and they do not feel like this is appropriate. SW called Jordan from [facility] and provided him with referral and orders. Jordan has met with pt and provided him with copay amount $70 and pt is agreeable. [facility] to follow up post discharge. SW explained to pt that HH would not be appropriate and pt explains he already has outpt setup and is agreeable. Pt's to provide transport home. SW will continue to follow. Assessment:Pt who would benefit from home infusion. Plan:Pt to discharge home when medically stable via POV. Pt has been set up with [facility] for IV abx and they can open tomorrow. Pt to do outpt PT services. SW will continue to follow. PAULA Salas
--- NOTE | 2016-07-05 14:14 | DRSVH ---
PROCEDURE: X-RAY PICC LINE PLACEMENT BY NURSE ([id number]) INDICATIONS: IV abx COMPARISON: [facility], CR, XR PICC LINE PLACE BY NURSE, 01/06/2015, 10:38. [facility], CR, XR PICC LINE PLACE BY NURSE, 11/25/2014, 8:26. FINDINGS: PICC was placed by the intravenous therapy team from the right side. Fluoroscopic spot fi lm demonstrates tip projected over the lower SVC. IMPRESSION: Tip of PICC projected over the lower SVC . Dictated by: Bj FR[place] Interpreted: Justo Echeverria MD on 07/05/2016 at 14:14 Transcribed by: MATHEW on 07/05/2016 at 14:14 Approved by: Justo Echeverria M.D. on 07/05/2016 at 14:34
--- NOTE | 2016-07-05 14:29 | NUR ---
Discharge Pt d/c'd home at approx 1428. Reviewed d/c instructions w/ patient and his , answered all questions. IV d/c'd intact. Pt taken to his 's POV via w/c w/ all belongings and hard copy of RX.
--- NOTE | 2016-07-05 14:30 | NUR ---
Social Work-discharge: Data:EMR reviewed. Pt is on day 2 of hospitalization for right knee per h&P. Pt is medically stable for discharge. SW updated Jordan with [facility] that pt is medically stable and is discharging today. [facility] to follow up with pt tomorrow. Pt has PICC line in place. Pt to return home with outpt PT services. Pt has cleared for home with outpt PT. Pt and updated and agreeable to plan. No other discharge needs. All updated and agreeable to plan. Assessment:Pt who is independent at baseline. Plan:Pt to discharge home today via POV. [facility] to follow up with pt at home. Pt has cleared for home with outpt PT. Pt and updated and agreeable to plan. No other discharge needs. All updated and agreeable to plan. PAULA Salas
== END 2016-07-05 14:25 | disposition home or self-care (01) | DRG 470 ==
LOC: SAS 08:21 → OSC 13:32
PROVIDERS: ADMIT Orthopaedic Surgery; ATTEND Orthopaedic Surgery
PROC: 0SRC0J9 Replacement of Right Knee Joint with Synthetic Substitute, Cemented, Open Approach (ICD-10-PCS; principal; 2016-07-03 10:45)
DX: M17.11 Unilateral primary osteoarthritis, right knee (principal); I10 Essential (primary) hypertension; M10.9 Gout, unspecified

== ENCOUNTER 2016-07-29 11:50 | Emergency (ER) | payer OTHER ==
[~2016-07-29 11:50] MED LIST changes: +ASPI325T32 PO; -Bupivacaine Liposome 1.3% 20 mL Inj INFILTRATE SCH; +DOCU-41 PO; +HYDR-3797 PO; -Lactated Ringer's 1,000 ML IV ONE; +OXYC1TAB24 PO
[2016-07-29 11:54] VITALS: BP 140/84; PULSE 93; RESP 16; O2SAT 95
--- NOTE | 2016-07-29 12:03 | ED.REPORT ---
HPI-General Illness Date of Service July 29, 2016 ED Provider: Gera Le MD Pt is a 51 y.o. male with a complicated medical hx who presents to the ED c/o swelling and tightness to right arm and shoulder onset today. Pt denies associated chest pain and SOB. Pt has a hx of psoriatic arthritis, gout, and septic knee secondary to MSSA in 2014. 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 Pt was switched to Daptomycin followed by Vancomycin then Minocycline during a multi-month therapy. Pt had significant damage to his right knee resulting in a total knee replacement on 07/03/16. Pt was then treated with ceftriaxone due to concern for latent infection. Pt was then seen by ID due to a sore throat and there was concern for erythema multiforme. The ceftriaxone was stopped and the pt was switched to daptomycin when he was seen by Dr. Bar Jefferson on 07/14/16. The pt states he then received a PICC in his right arm and was administered Vancomycin. Pt's PICC line became occluded and was removed on 07/26/16. Pt was started on oral Zyvox yesterday. He states the swelling and tightness is where his PICC line was located. Pt denies a fever. His is a nurse and they are concerned that he developed a right arm DVT. Nursing Notes Stated Complaint: POSS BLOOD CLOT Chief Complaint: General Complaint Nursing Notes Reviewed: Yes Allergies: Coded Allergies: Penicillins (Verified Allergy, Severe, DANO PEG SYNDROME, 06/14/16) amoxicillin (Verified Allergy, Severe, DANO PEG SYNDROME, 06/14/16) ceftriaxone (Verified Allergy, Severe, 07/11/16) Early mucoasal erosions-absolutely not to receive additional cephalosporins or penicillins of anty type cephalexin (Unverified Allergy, Unknown, UNKNOWN, 06/14/16) clavulanic acid (Verified Allergy, Unknown, UNKNOWN, 06/14/16) linezolid (Verified Allergy, Unknown, 06/28/16) metoclopramide (Verified Adverse Reaction, Severe, "OUT OF BODY" EXPERIENCE, 06/14/16) Scheduled Allopurinol (Allopurinol) 300 Mg Tablet 900 MG PO DAILY Aspirin (Aspirin) 325 Mg Tablet 325 MG PO DAILY 40 days Docusate Sodium (Colace) 100 Mg Capsule 100 MG PO BID Folic Acid (Folic Acid) 1 Mg Tablet 1 MG PO DAILY Indomethacin (Indomethacin) 50 Mg Capsule 50 MG PO 3-4xdaily Lisinopril (Lisinopril) 20 Mg Tablet 20 MG PO DAILY Methotrexate/Pf (Rasuvo 10 mg/0.2 ml Autoinj) 10 Mg/0.2 Ml Auto.injct 10 MG SQ WEEKLY Secukinumab (Cosentyx (2 Syringes)) 150 Mg/Ml Syringe 300 MG SQ [id number] Sulfasalazine (Sulfasalazine) 500 Mg Tablet 1,000 MG PO BID Scheduled PRN Betamethasone/Propylene Glyc (Betamethasone Dp Aug 0.05% Lot) 30 Ml Lotion 30 ML TP PRN skin irritation Clobetasol Propionate/Emoll (Clobetasol Emollient 0.05% Crm) 15 Gm Cream..g. 1 APPL TOP BID PRN PRN skin irritation Colchicine (Colchicine) 0.6 Mg Capsule 0.6 MG PO DAILY PRN PRN gout flares Hydroxyzine Pamoate (HydrOXYzine Pamoate) 25 Mg Capsule 25 MG PO Q4H PRN PRN For Restlessness Triamcinolone Acet (Triamcinolone Acetonide Cream) 1 Applic/0.25 Gm Cr 1 APPLIC EXT BID PRN PRN skin irritation oxyCODONE (oxyCODONE) 5 Mg Capsule 5 MG PO 3-4xdaily PRN PRN For Pain oxyCODONE-Acetaminophen 5-325 mg (oxyCODONE-Acetaminophen 5-325 mg) 1 Each Tablet 1-2 TAB PO Q4H PRN PRN For Severe Pain General Time Seen by MD: 12:03 Chief Complaint Other (Right upper extremity pain) Hx Obtained From: Patient Arrived By: Walk-in Onset Occurred: 5 - 8 hours ago Symptom Duration: Since onset Location: : Arm right Quality: Painful Severity: Current: Mild Past Medical History Past Medical History Notes: Psoriatic Arthritis Gout Past Medical History Septic right knee secondary to MSSA 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 Hip replacement Reports: Knee replacement (Right) Family History non contributory Smoking History Never Smoker Social History is a RN [employer] Alcohol Use: 1-3 per week Drug Use: Denies drug use Ambulatory Status Independent Review of Systems Full Review of Systems Constitutional: Denies: Fever Respiratory: Denies: Shortness of breath Cardiovascular: Denies: Chest pain Musculoskeletal: Reports: Extremity pain (Right upper extremity), Extremity swelling (Right upepr extremity) Complete sys rev & neg: except as marked. Physical Exam Vital Signs Vital Signs Date Time Temp Pulse Resp B/P Pulse Ox O2 Delivery O2 Flow Rate FiO2 07/29/16 12:27 37.0 85 20 109/57 97 Room Air 07/29/16 11:54 35.9 93 16 140/84 95 Room Air Initial VS: Reviewed Abdomen / GI: Soft, Non-tender, No distention Extremities: Vascular intact, Neuro intact Skin: Warm, Dry, No cyanosis Neurologic: Alert, Oriented, Nonfocal Psychiatric: Mood/affect normal, Behavior normal, Normal thought content General/Constitutional: Awake, Alert, No acute distress, Well appearing, Well developed, Well hydrated, Well nourished, Not toxic appearing Appearance / Presentation: Positive: Obese Head / Eyes: Atraumatic, Normocephalic, PERRL, EOMI Respiratory / Chest: Atraumatic, Breath sounds NL, Breath sounds = bilat, No respiratory distress Cardiovascular: Heart rate NL, Regular rhythm, Heart sounds NL, Cap refill not delayed, Peripheral circulation NL No calf swelling Upper Extremities Upper Extremity / MS: Atraumatic, No erythema, No deformity, Neurologic intact , Vascular intact Right Upper Arm: Positive: Tenderness present... (Mild to palpation), Negative: Erythema present, Warmth present Right Forearm: Positive: Tenderness present... (Mild to palpation), Negative: Erythema present, Warmth present Right upper extremity slightly swollen from wrist to shoulder when compared with left upper extremity. Lower Extremity / Pelvis / MS: Atraumatic, Inspection NL, No swelling, Non- tender, No erythema, No deformity, Neurologic intact, Vascular intact Lower Extremities Normals: Knee R exam normal, Knee L exam normal Right Knee: Negative: Erythema present, Swelling present..., Tenderness present..., Warmth present Right knee well healed anterior surgical incision Interpretation & Diagnostics US Focused Upper Extremity Venous: IMPRESSION: No evidence of right upper extremity DVT. Dictated by: Debbie Thompson M.D. on 07/29/2016 at 13:37 Approved by: Debbie Thompson M.D. on 07/29/2016 at 13:37 Lab Results Interpretation Result Diagram: 07/29/16 1250 07/29/16 1250 Test 07/29/16 12:50 White Blood Count 8.4th/mm3 (3.8-10.1) Red Blood Count 4.02mil/mm3 (4.40-5.80) Hemoglobin 12.7g/dL (13.8-17.2) Hematocrit 37.7% (41.0-50.0) Mean Corpuscular Volume 93.8fL (81-100) Mean Corpuscular Hemoglobin 31.6pg (27.0-35.0) Mean Corpuscular Hemoglobin Concent 33.7% (32.0-37.0) Red Cell Distribution Width 14.6% (12.3-15.4) Platelet Count 141bil/L (150-400) Neutrophils (%) (Auto) 83.2% (40-74) Lymphocytes (%) (Auto) 11.6% (14-46) Monocytes (%) (Auto) 2.9% (4-12) Eosinophils (%) (Auto) 0.4% (0-5) Basophils (%) (Auto) 0.1% (0-3) Prothrombin Time 10.1sec (8.1-12.5) Prothromb Time International Ratio 0.95ratio Sodium Level 132mEq/L (134-144) Potassium Level 4.6mEq/L (3.5-5.2) Chloride Level 95mEq/L (97-108) Carbon Dioxide Level 21mmol/L (18-29) Blood Urea Nitrogen 28mg/dL (6-24) Creatinine 0.91mg/dL (0.76-1.27) Estimat Glomerular Filtration Rate 94mL/min (>59) Glucose Level 169mg/dL (60-99) Lactic Acid Level 1.8mmol/L (0.4-2.0) Calcium Level 9.4mg/dL (8.5-10.1) Total Bilirubin 0.5mg/dL (0.0-1.2) Aspartate Amino Transf (AST/SGOT) 44U/L (0-50) Alanine Aminotransferase (ALT/SGPT) 55U/L (0-44) Alkaline Phosphatase 52U/L (25-150) Total Protein 7.7g/dL (6.4-8.4) Albumin 4.3g/dL (3.4-5.0) X-Ray Chest Interpretation Chest Xray Interpretation: IMPRESSION: No acute process. Dictated by: Debbie Thompson M.D. on 07/29/2016 at 12:57 Approved by: Debbie Thompson M.D. on 07/29/2016 at 12:57 Re-Eval/Medical Decision Med Decision/Clinical Course Pt is a 51 y.o. male with a complicated medical hx who presents to the ED c/o swelling and tightness to right arm and shoulder onset today. Pt denies associated chest pain and SOB. Pt has a hx of psoriatic arthritis, gout, and septic knee secondary to MSSA in 2014. 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 Pt was switched to Daptomycin followed by Vancomycin then Minocycline during a multi-month therapy. Pt had significant damage to his right knee resulting in a total knee replacement on 07/03/16. Pt was then treated with ceftriaxone due to concern for latent infection. Pt was then seen by ID due to a sore throat and there was concern for erythema multiforme. The ceftriaxone was stopped and the pt was switched to daptomycin when he was seen by Dr. Bar Jefferson on 07/14/16. The pt states he then received a PICC in his right arm and was administered Vancomycin. Pt's PICC line became occluded and was removed on 07/26/16. Pt was started on oral Zyvox yesterday. He states the swelling and tightness is where his PICC line was located. Pt denies a fever. His is a nurse and they are concerned that he developed a right arm DVT. Reviewed most recent blood cultures. Two sets obtained on 07/16/16 both showed no growth after two days. Here in the emergency department the patient is afebrile with stable vital signs in no apparent distress. Examination of his knee reveals no redness, swelling, warmth or evidence of septic arthritis whatsoever. Examination of his right upper extremity reveals that it is swollen , slightly purplish in color though neurovascularly intact with good cap refill to the fingertips and good radial pulses. The history and presentation is all quite concerning for DVT. Ultrasound was obtained as documented above and confirmed presence of DVT of the right upper extremity. Laboratory studies at this time are otherwise reassuring. Discussed options for management of DVT with patient. He does not want to be admitted to the hospital. Discussed with Dr. Bar Jefferson and they will make sure that he gets close follow-up. Discussed with pharmacy dosing of Lovenox and Coumadin. Patient received first dose of Coumadin and Lovenox here in the emergency department. He will be discharged with Lovenox bridged to Coumadin. He will follow-up in 48 hours with anticoagulation clinic to check his INR. He will follow up closely with Dr. Bar Jefferson as well as his primary care physician. At this time he is stable and I feel that he is appropriate for discharge. Prior to discharge follow-up and return precautions were reviewed in detail with the patient who verbalized understanding and agreement with the plan. The patient was discharged in stable condition. Source of Hx: Old records Time of Eval: 13:00 Re-Evaluation/Progress Note: Pt rechecked. US has not yet been performed. Time of Eval: 13:24 Re-Evaluation/Progress Note: Pt rechecked. Discussed US result of DVT and need for admission. Pt would prefer to be discharge on an anticoagulant if possible. Consultation : Referral / Consult Name: Bar Jefferson MD Call Returned at: 13:26 Rehab Nursing Tech: Will see patient, Agrees with eval, Agrees with plan Note: Consulted with beth Lipscomb with outpatient management and will see him next week. Counseled Regarding: Diagnosis Discharge & Departure Primary Impression: DVT of upper extremity (deep vein thrombosis) Affected thrombotic vein of extremity: brachial Laterality: right Chronicity: acute Qualified Code: I82.621 - Acute embolism and thrombosis of deep veins of right upper extremity Additional Impressions: Swelling of right upper extremity Occluded PICC line Encounter type: sequela Qualified Code: T82.898S - Other specified complication of vascular prosthetic devices, implants and grafts, sequela History of septic arthritis History of Dent-Peg toxic epidermal necrolysis overlap syndrome Disposition: Home Discharge Condition All VS Reviewed: Yes Condition: Improved Additional Instructions: Thank you for seeking care at the emergency room. It is difficult for us to make definitive diagnoses in the ED but we believe that you are experiencing a right upper extremity deep vein thrombosis. You will be discharged with a prescription for Coumadin, 5mg once daily for the next 7 days, and Lovenox, 120mg twice a day for the next 5 days. Please self administer the Lovenox as directed. Please follow up with the anticoagulation clinic in the next 48 hours to have your Coumadin level checked ( ). You will need to continue to use Lovenox until your Coumadin level is therapeutic. You should follow-up with Dr. Jefferson and your primary care provider next week. You should return to the ED immediately if you develop increased swelling, redness, numbing of her fingertips, discoloration of the fingertips, shortness of breath, chest pain, weakness or any other concerning signs or symptoms. Thank you for letting us partake in your care today. Referrals: Kim Howard (PCP) Crit Care Except Billable Proc Time Spent: 75-104 minutes Services Performed: Patient management by me, Time spent at bedside, Reviewing test results, Reviewing imaging, Discussing patient care, Documentation in record, Time with fam/surrogate Scribe Attestation Portions of this note were transcribed by Pavithra Austin. I, Dr. Le personally performed the history, physical exam and medical decision-making; I reviewed and confirmed the accuracy of the information in the transcribed note. Signed by: Theodore Kendall, 07/29/16 and 1347 copies to: Kim Howard; Bar Jefferson MD, Beck O MD July 29, 2016 12:03 PAVITHRA AUSTIN July 29, 2016 12:37
[2016-07-29 12:27] VITALS: BP 109/57; PULSE 85; RESP 20; O2SAT 97
--- NOTE | 2016-07-29 12:58 | DRSVH ---
PROCEDURE: X-RAY CHEST ONE VIEW, PORTABLE ([id number]) INDICATIONS: r/o pna TECHNIQUE: One view of the chest was acquired. COMPARISON: [facility], CR, XR CHEST 2VW, 07/21/2016, 11:22. FINDINGS: Surgical changes and devices: None. Lungs and pleura: No pleural effusions or pneumothorax. Lungs are clear. Mediastinum: Mediastinal contours appear normal. Heart size is normal. Bones and chest wall: No suspicious bony lesions. Overlying soft tissues appear unremarkable. IMPRESSION: No acute process. Dictated by: Debbie Thompson M.D. on 07/29/2016 at 12:57 Approved by: Debbie Thompson M.D. on 07/29/2016 at 12:57
[2016-07-29 13:21] LABS: BASOPHILS % (AUTO) 0.1 % (0-3); EOSINOPHILS % (AUTO) 0.4 % (0-5); MONOCYTES % (AUTO) 2.9 % (4-12); Mean Corpuscular Hemoglobin 31.6 pg (27.0-35.0); Mean Corpuscular Volume 93.8 fL (81-100); NEUTROPHILS % (AUTO) 83.2 % (40-74); Platelet Count 141 bil/L (150-400)
[2016-07-29 13:24] LABS: INR 0.95 ratio
--- NOTE | 2016-07-29 13:39 | DRSVH ---
PROCEDURE: US VENOUS ARM DUPLEX UNILATERAL, RIGHT INDICATIONS: RUE swelling redness TECHNIQUE: Real-time imaging, as well as color and pulse Doppler interrogation, was performed of the right upper extremity deep veins from the inferior neck to the antecubital fossa. COMPARISON: None. FINDINGS: The internal jugular vein, visualized portions of the subclavian vein, axillary, and brach ial veins are free of intraluminal thrombus. Where physically possible, the veins are normally compr essible. Color and pulse Doppler demonstrate normal intraluminal flow, with expected phasicity and p ulsatility. Additional scanning of the cephalic and basilic veins of the superficial system demonstr ate normal compressibility, without thrombus. IMPRESSION: No evidence of right upper extremity DVT. Dictated by: Debbie Thompson M.D. on 07/29/2016 at 13:37 Approved by: Debbie Thompson M.D. on 07/29/2016 at 13:37
== END 2016-07-29 14:23 | disposition home or self-care (01) ==
LOC: SED 11:50
DX: I82.621 Acute embolism and thrombosis of deep veins of right upper extremity (principal); T82.898S Other specified complication of vascular prosthetic devices, implants and grafts, sequela; Y71.2 Prosthetic and other implants, materials and accessory cardiovascular devices associated with adverse incidents; Y92.9 Unspecified place or not applicable; Y93.9 Activity, unspecified; Y99.9 Unspecified external cause status; L40.52 Psoriatic arthritis mutilans; M10.00 Idiopathic gout, unspecified site; I10 Essential (primary) hypertension; Z87.39 Personal history of other diseases of the musculoskeletal system and connective tissue; Z86.19 Personal history of other infectious and parasitic diseases; Z89.521 Acquired absence of right knee; Z79.82 Long term (current) use of aspirin; Z88.0 Allergy status to penicillin; Z88.1 Allergy status to other antibiotic agents; Z88.8 Allergy status to other drugs, medicaments and biological substances
CPT/HCPCS: 36415; 71010; 80053; 83605; 85025; 85610; 93971; 96372; 99285; J1650